=== PATIENT | male | born 1970 | race Caucasian/White ===

== ENCOUNTER 2017-10-31 08:42 | Emergency (ER) | payer OTHER ==
[~2017-10-31 08:42] MED LIST: CEP500 PO; CYCL10TA29 PO; HYDR-6016 PO; HYDR10TA3 PO; LOR75 PO; NAPR500T75 PO
--- NOTE | 2017-10-31 08:45 | ER Report ---
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 He states that he was wearing eye protection however dust was so profound that it went around the sides of his eye protection and landed in his right eye. He reports photophobia, pain, and tearing of his right eye. No trauma to his left eye. No other complaints. Remainder of the 14 system rev: Yes Allergies: Coded Allergies: No Known Drug Allergies (Verified , 04/17/14) Home Meds Active Scripts Ofloxacin (OCUFLOX) 5 Ml Drops, 5 ML OP QID for 5 Days, #1 Prov:LEATHA RODRIGUEZ MD 10/31/17 Ketorolac Tromethamine (KETOROLAC TROMETHAMINE) 10 Mg Tab, 10 MG PO Q6H Y for PAIN, #12 TAB 0 Refills Prov:LEATHA RODRIGUEZ MD 10/31/17 Oxycodone Hcl/Acetaminophen (PERCOCET 5-325 MG TABLET) 1 Each Tablet, 1 EACH PO Q4H Y for PAIN, #12 TAB 0 Refills Prov:LEATHA RODRIGUEZ MD 10/31/17 Reported Medications Hydroxyzine Hcl (HYDROXYZINE HCL) 10 Mg Tablet, 10 MG PO PRN 11/06/13 Reviewed Nurses Notes: Yes Old Medical Records Reviewed: Yes Hx Smoking: Yes Smoking Status: Former Smoker Hx Substance Use Disorder: No Hx Alcohol Use: Yes Constitutional Vital Sign - Last 24 Hours 10/31/17 10/31/17 10/31/17 10/31/17 08:42 08:48 08:48 08:57 Temp 97.7 Pulse ??? 76 66 Resp 16 B/P (MAP) 139/85 139/85 (103) 144/86 (105) Pulse Ox 96 96 O2 Delivery Room Air 10/31/17 10/31/17 10/31/17 10/31/17 09:00 09:12 09:27 09:30 Pulse 57 56 B/P (MAP) 138/80 (99) 143/92 (109) Pulse Ox 94 98 10/31/17 10/31/17 10/31/17 10/31/17 09:42 09:57 10:00 10:12 Pulse 53 163 67 B/P (MAP) ???/??? (1664) Pulse Ox 97 100 94 10/31/17 10/31/17 10/31/17 10:13 10:27 10:30 Pulse ??? B/P (MAP) 138/89 (105) ???/??? (166) Pulse Ox 99 Physical Exam General Appearance: Alert, no distress. Eyes: Pupils equal and round no pallor. Pupils are equal. Right eye has moderate injection. Fluorescein exam reveals uptake of the lower half of the cornea, no Bruce's sign Slit lamp exam: No hyphema/hypopyon, no cell and flare, no residual foreign body Skin: Periorbital skin is not inflamed. [ ] DIFFERENTIAL DIAGNOSIS: After history and physical exam differential diagnosis was considered for a red eye including but not limited to foreign body, conjunctivitis, traumatic iritis, globe rupture and corneal abrasion. 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 He has a moderate size corneal abrasion on the lower hemisphere of his right cornea. There is no evidence of ulceration or globe rupture. His eye was irrigated with 2 L of normal saline using a Wade lens after anesthesia with topical eyedrops. No residual evidence of a foreign body. He does still report feeling a foreign body sensation, however I think that is from his moderate size corneal abrasion. Adequate anesthesia he is able to open his right eye and states that his vision is relatively normal other than some mild blurry vision. I do not think he needs CT imaging of his eye to evaluate for rupture. He is not a contact wear. He may have a mild traumatic iritis, however an adequate slit lamp exam was difficult given his photophobia and pain in his right eye. I administered mydriatic for pain relief. He was also given oxycodone and ibuprofen by mouth. Discharged him with oxycodone, ibuprofen, and Ocuflox antibiotic eye drops. He is to return tomorrow morning at 0700 for a recheck. I counseled him that in the meantime if his pain or vision worsened he should immediately return to the emergency department. Decision to Disposition Date: Oct 31, 2017 Decision to Disposition Time: 11:52 Depart Departure Latest Vital Signs Vital Signs Date Time Temp Pulse Resp B/P (MAP) Pulse Ox O2 Delivery O2 Flow Rate FiO2 10/31/17 10:30 ???/??? (1665) 10/31/17 10:27 ??? 99 10/31/17 08:48 97.7 16 Room Air Impression: Primary Impression: Corneal abrasion Condition: Improved Disposition: HOME OR SELF-CARE New Scripts Ofloxacin (OCUFLOX) 5 Ml Drops 5 ML OP QID for 5 Days, #1 Prov: LEATHA RODRIGUEZ MD 10/31/17 Ketorolac Tromethamine (KETOROLAC TROMETHAMINE) 10 Mg Tab 10 MG PO Q6H Y for PAIN, #12 TAB 0 Refills Prov: LEATHA RODRIGUEZ MD 10/31/17 Oxycodone Hcl/Acetaminophen (PERCOCET 5-325 MG TABLET) 1 Each Tablet 1 EACH PO Q4H Y for PAIN, #12 TAB 0 Refills Prov: LEATHA RODRIGUEZ MD 10/31/17 Patient Instructions: Corneal Abrasion (ED) Additional Instructions: Return to the emergency department tomorrow at 0 700 for a repeat eye check. Problem Qualifiers Primary Impression: Corneal abrasion Encounter type: initial encounter Laterality: right Qualified Codes: S05.01XA - Injury of conjunctiva and corneal abrasion without foreign body, right eye, initial encounter LEATHA RODRIGUEZ MD Oct 31, 2017 08:45
[2017-10-31] MEDS ORDERED: TETRACAINE 0.5% OP SOL 4ML BTL OD ONE (08:55)
[2017-10-31] MEDS ORDERED: FLUORESCEIN SOD 1 MG 1 EA STRP OD ONE (10:00)
[2017-10-31] MEDS ORDERED: TROPICAMIDE 1% OP ONE (11:00)
[2017-10-31] MEDS ORDERED: oxyCODONE HCL 5 MG CAP PO ONE (11:00)
[2017-10-31] MEDS ORDERED: OFLOXACIN 0.3% OP SOLN 5ML BTL OD SCH (11:00)
[2017-10-31] MEDS ORDERED: IBUPROFEN 600 MG TAB PO ONE (11:00)
[2017-10-31] MEDS ORDERED: OXYC-865 PO (11:54)
[2017-10-31] MEDS ORDERED: KET10 PO (11:54)
[2017-10-31] MEDS ORDERED: OFLO5DRO38 OP (11:55)
== END 2017-10-31 12:15 | disposition home or self-care (01) ==
LOC: ER 08:47
DX: S05.01XA Injury of conjunctiva and corneal abrasion without foreign body, right eye, initial encounter (principal)
CPT/HCPCS: 99283

== ENCOUNTER 2017-11-01 06:55 | Emergency (ER) | payer OTHER ==
[~2017-11-01 06:55] MED LIST changes: +KET10 PO; +OFLO5DRO38 OP; +OXYC-865 PO
[2017-11-01] MEDS ORDERED: FLUORESCEIN SOD 1 MG 1 EA STRP OD ONE (07:30)
[2017-11-01] MEDS ORDERED: TETRACAINE 0.5% OP SOL 4ML BTL OD ONE (07:30)
--- NOTE | 2017-11-01 08:21 | ER Report ---
History and Physical Time Seen By MD: 08:20 Hx. of Stated Complaint: PT HERE TO RE-CHECK R EYE FROM VISIT YESTERDAY HPI/ROS Seen yesterday for a corneal abrasion. Returned today for a recheck. Markedly improved. Vision back to baseline. Pain almost fully controlled. Remainder of the 14 system rev: Yes Allergies: Coded Allergies: No Known Drug Allergies (Verified , 11/01/17) Home Meds Active Scripts Ofloxacin (OCUFLOX) 5 Ml Drops, 5 ML OP QID for 5 Days, #1 Prov:LEATHA RODRIGUEZ MD 10/31/17 Ketorolac Tromethamine (KETOROLAC TROMETHAMINE) 10 Mg Tab, 10 MG PO Q6H Y for PAIN, #12 TAB 0 Refills Prov:LEATHA RODRIGUEZ MD 10/31/17 Oxycodone Hcl/Acetaminophen (PERCOCET 5-325 MG TABLET) 1 Each Tablet, 1 EACH PO Q4H Y for PAIN, #12 TAB 0 Refills Prov:LEATHA RODRIGUEZ MD 10/31/17 Reported Medications Hydroxyzine Hcl (HYDROXYZINE HCL) 10 Mg Tablet, 10 MG PO PRN 11/06/13 Reviewed Nurses Notes: Yes Old Medical Records Reviewed: Yes Hx Smoking: Yes Smoking Status: Former Smoker Hx Substance Use Disorder: No Hx Alcohol Use: Yes Constitutional Vital Sign - Last 24 Hours 11/01/17 11/01/17 07:01 08:23 Temp 98.2 Pulse 67 69 Resp 16 16 B/P (MAP) 127/86 118/80 (93) Pulse Ox 96 96 O2 Delivery Room Air Room Air Physical Exam General Appearance: Alert, no distress. Eyes: Pupils equal and round no pallor. Pupils are equal. Right eye has moderate injection. There is no foreign body. Fluorescein exam reveals uptake at the lower cornea. No sidels sign. Slit lamp exam: No cell and flare, no hyphema or hypopyon, no Bruce's, no corneal ulcer Skin: Periorbital skin is mildly inflamed. DIFFERENTIAL DIAGNOSIS: After history and physical exam differential diagnosis was considered for a red eye including but not limited to foreign body, conjunctivitis, iritis and corneal ulcer Medical Decision Making ED Course/Re-evaluation ED Course This patient returns to the ED today for a recheck for a corneal abrasion. He is markedly improved both subjectively and on his physical exam. I counseled him to continue with his antibiotic eyedrops as well as Toradol for pain. If he has any further problems he will either follow up in the emergency department or with an riveter pneumatic. Decision to Disposition Date: Nov 01, 2017 Decision to Disposition Time: 08:20 Depart Departure Latest Vital Signs Vital Signs Date Time Temp Pulse Resp B/P (MAP) Pulse Ox O2 Delivery O2 Flow Rate FiO2 11/01/17 08:23 69 16 118/80 (93) 96 Room Air 11/01/17 07:01 98.2 Impression: Primary Impression: Encounter for wound re-check Condition: Improved Disposition: HOME OR SELF-CARE Departure Forms: Medications Reconciliation, Patient Portal Information, ER Transition Record Patient Instructions: Corneal Abrasion (ED) LEATHA RODRIGUEZ MD Nov 01, 2017 08:21
[2017-11-01 08:23] VITALS: BP 118/80
== END 2017-11-01 08:23 | disposition home or self-care (01) ==
LOC: ER 07:03
DX: S05.01XD Injury of conjunctiva and corneal abrasion without foreign body, right eye, subsequent encounter (principal)
CPT/HCPCS: 99283